=== PATIENT | female | born 1975 | race African-American/Black ===

== ENCOUNTER 2020-06-21 06:15 | Emergency (ER) | payer MEDICAID ==
[~2020-06-21] VITALS: Ht 172.7 cm; Wt 69.0 kg
[2020-06-21] MEDS ORDERED: IBUPROFEN 600MG TABLET PO ONE (07:00)
[2020-06-21] MEDS ORDERED: LIDOCAINE HCL/PF 1% 10 MG/ML 5ML VIAL IJ ONE (07:00)
[2020-06-21] MEDS ORDERED: TETANUS, DIPHTHERIA, PERTUSSIS VAC/PF 0.5ML (>7YR OLD) IM ONE (07:00)
[2020-06-21] MEDS ORDERED: BACITRACIN ZINC OINT UDPKT TOP ONE (07:00)
[2020-06-21] MEDS ORDERED: SULF-292 MT (08:19)
[2020-06-21] MEDS ORDERED: IBUP-2028 MT (08:19)
[2020-06-21 08:33] VITALS: BP 122/78
== END 2020-06-21 08:35 | disposition home or self-care (01) ==
LOC: ER 06:15
DX: S02.2XXA Fracture of nasal bones, initial encounter for closed fracture (principal); Z88.0 Allergy status to penicillin; W51.XXXA Accidental striking against or bumped into by another person, initial encounter; Y93.89 Activity, other specified; Y92.89 Other specified places as the place of occurrence of the external cause; Y99.8 Other external cause status
CPT/HCPCS: 12011; 70450; 70486; 90471; 90715; 99285; J3490; Z7610